=== PATIENT | male | born 1945 | race Caucasian/White ===

== ENCOUNTER 2018-07-14 05:28 | Emergency (ER) | payer MEDICARE, BC ==
[2018-07-14] MEDS ORDERED: Ciprofloxacin 500 MG Tab PO ONE (05:29)
[2018-07-14] MEDS ORDERED: Tamsulosin 0.4 MG Cap.ER PO ONE (05:29)
[2018-07-14] MEDS ORDERED: Acetaminophen/oxyCODONE 325-5 MG Tab PO ONE (05:29)
[2018-07-14] MEDS ORDERED: Sodium Chloride 0.9% 1,000 ML IV ONE (05:38)
[2018-07-14] MEDS ORDERED: HYDROmorphone 1 MG/ML Syringe IVPUSH ONE ×2 (05:58→06:20)
[2018-07-14] MEDS ORDERED: Ondansetron 4 MG/2 ML SDV IV ONE (05:58)
[2018-07-14 06:16] LABS: ANION GAP 18.7; CHLORIDE,CL 99 mmol/L (101-111); SODIUM,NA 135 mmol/L (135-145)
[2018-07-14] MEDS ORDERED: Iopamidol 612 MG/ML 100 ML Bottle IVPUSH ONE (06:22)
--- NOTE | 2018-07-14 06:38 | EDM.PDOC ---
ED HPI GENERAL MEDICAL PROBLEM - General Chief Complaint: Abdominal Pain Stated Complaint: KIDNEY STONE [id number] Time Seen by Provider: 07/14/18 05:30 Source of Information: Reports: Patient History Limitations: Reports: No Limitations - History of Present Illness INITIAL COMMENTS - FREE TEXT/NARRATIVE: ED with c/o RLQ pain, started around 0200. Nausea, no vomiting Pain initially intermittent, now constant. No fever. Hx kidney stones and diverticulitis. HTN, CAD. Urinary frequency without burning. Supper last meal. Right Lower Abdomen Pain Score (Numeric/FACES): 8 Past Medical History Cardiovascular History: Reports: Hypertension Genitourinary History: Reports: Renal Calculus Musculoskeletal History: Reports: Back Pain, Chronic - Past Surgical History Musculoskeletal Surgical History: Reports: Other (See Below) Other Musculoskeletal Surgeries/Procedures:: back surgery Social & Family History - Tobacco Use Smoking Status *Q: Never Smoker Second Hand Smoke Exposure: No - Recreational Drug Use Recreational Drug Use: No ED ROS GENERAL - Review of Systems Review Of Systems: ROS reveals no pertinent complaints other than HPI. ED EXAM, GI/ABD - Physical Exam Exam: See Below Exam Limited By: No Limitations General Appearance: Alert, Moderate Distress Ears: Normal External Exam, Normal TMs Nose: Normal Inspection, Normal Mucosa Throat/Mouth: Normal Inspection, Normal Lips, Normal Voice Head: Atraumatic, Normocephalic Neck: Normal Inspection, Tender Midline Respiratory/Chest: No Respiratory Distress, Lungs Clear Cardiovascular: Normal Peripheral Pulses, Regular Rate, Rhythm GI/Abdominal Exam: Soft, Tender Back Exam: Normal Inspection Extremities: Normal Range of Motion, Normal Capillary Refill Neurological: Alert, Oriented Psychiatric: Tearful, Other Skin Exam: Dry, Intact, Normal Color Course - Vital Signs Last Recorded V/S: Last Vital Signs Temp 96.8 F 07/14/18 05:31 Pulse 97 07/14/18 05:31 Resp 20 07/14/18 05:31 BP 169/82 H 07/14/18 05:31 Pulse Ox 99 07/14/18 05:31 - Orders/Labs/Meds Labs: Laboratory Tests 07/14/18 07/14/18 07/14/18 Range/Units 05:45 05:45 05:45 WBC 13.9 H (5.0-10.0) 10^3/uL RBC 5.08 (4.6-6.2) 10^6/uL Hgb 15.5 (14.0-18.0) g/dL Hct 46.2 (40.0-54.0) % MCV 90.9 (80-100) fL MCH 30.5 (27.0-34.0) pg MCHC 33.5 (33.0-35.0) g/dL Plt Count 283 (150-450) 10^3/uL Neut % (Auto) 80.3 H (42.2-75.2) % Lymph % (Auto) 13.4 L (20.5-50.1) % [place] % (Auto) 5.8 (2-8) % Eos % (Auto) 0.3 L (1.0-3.0) % Baso % (Auto) 0.2 (0.0-1.0) % Sodium 135 (135-145) mmol/L Potassium 3.7 (3.6-5.0) mmol/L Chloride 99 L (101-111) mmol/L Carbon Dioxide 21.0 (21.0-31.0) mmol/L Anion Gap 18.7 BUN 15 (7-18) mg/dL Creatinine 1.1 (0.6-1.3) mg/dL Est Cr Clr Drug Dosing 67.61 mL/min Estimated GFR (MDRD) > 60 BUN/Creatinine Ratio 13.63 Glucose 226 H (74-105) mg/dL Lactic Acid 3.4 H (0.5-2.2) mmol/L Calcium 8.9 (8.4-10.2) mg/dl Total Bilirubin 1.0 (0.2-1.0) mg/dL AST 37 (10-42) IU/L ALT 63 H (10-60) IU/L Alkaline Phosphatase 111 (42-121) IU/L Total Protein 7.3 (6.7-8.2) g/dl Albumin 4.2 (3.2-5.5) g/dl Globulin 3.1 Albumin/Globulin Ratio 1.35 Meds: Medications Discontinued Medications Generic Name Dose Route Start Last Admin Trade Name Freq PRN Reason Stop Dose Admin Ciprofloxacin Confirm 07/14/18 07:35 07/14/18 08:15 Ciprofloxacin Hcl Administered 07/14/18 07:36 Not Given Dose 500 mg .ROUTE .STK-MED ONE Hydromorphone HCl 1 mg 07/14/18 05:58 07/14/18 06:03 Dilaudid IVPUSH 07/14/18 05:59 1 mg ONETIME ONE Administration Hydromorphone HCl 1 mg 07/14/18 06:20 07/14/18 06:26 Dilaudid IVPUSH 07/14/18 06:21 1 mg ONETIME ONE Administration Sodium Chloride 1,000 mls @ 500 mls/hr 07/14/18 05:38 07/14/18 05:50 Normal Saline IV 07/14/18 07:37 500 mls/hr .BOLUS ONE Administration Iopamidol 100 ml 07/14/18 06:22 07/14/18 06:57 Isovue-300 (61%) IVPUSH 07/14/18 06:23 100 ml ONETIME ONE Administration Ketorolac Tromethamine 30 mg 07/14/18 07:09 07/14/18 07:15 Toradol IVPUSH 07/14/18 07:10 30 mg ONETIME ONE Administration Ondansetron HCl 4 mg 07/14/18 05:58 07/14/18 06:01 Zofran IV 07/14/18 05:59 4 mg ONETIME ONE Administration Oxycodone/Acetaminophen Confirm 07/14/18 07:36 07/14/18 08:15 Percocet 325-5 Mg Administered 07/14/18 07:37 Not Given Dose 1 tab .ROUTE .STK-MED ONE Tamsulosin HCl Confirm 07/14/18 07:35 07/14/18 08:15 Flomax Administered 07/14/18 07:36 Not Given Dose 0.4 mg .ROUTE .STK-MED ONE Departure - Departure Time of Disposition: 08:00 Disposition: Home, Self-Care 01 Condition: Good Clinical Impression: Renal colic on right side, Renal calculus, right - Discharge Information *PRESCRIPTION DRUG MONITORING PROGRAM REVIEWED*: No *COPY OF PRESCRIPTION DRUG MONITORING REPORT IN PATIENT SCOTT: No Instructions: Kidney Stones, [id number] Referrals: PCP,Not In Area [Primary Care Provider] - Forms: ED Department Discharge Additional Instructions: increase fluid intake oxycodone APAP 5/325 one every 6 hours as needed for sever pain flomax 0.4mg one daily cipro 500mg one twice daily follow up with urology or primary care this week
[2018-07-14] MEDS ORDERED: Ketorolac 30 MG/ML SDV IVPUSH ONE (07:09)
[2018-07-14] MEDS ORDERED: Ciprofloxacin 500 MG Tab ONE (07:35)
[2018-07-14] MEDS ORDERED: Tamsulosin 0.4 MG Cap.ER ONE (07:35)
[2018-07-14] MEDS ORDERED: Acetaminophen/oxyCODONE 325-5 MG Tab ONE (07:36)
== END 2018-07-14 08:07 | disposition home or self-care (01) ==
LOC: DL.ED 05:28
DX: N13.2 Hydronephrosis with renal and ureteral calculous obstruction (principal); I10 Essential (primary) hypertension
CPT/HCPCS: 36415; 74178; 80053; 83605; 85025; 96361; 96374; 96375; 99284; A9270; J1170; J1885; J2405; J7030; Q9967